=== PATIENT | male | born 1980 | race Caucasian/White ===

== ENCOUNTER 2017-09-06 13:00 | Emergency (ER) | payer BC ==
[~2017-09-06] VITALS: Ht 180.3 cm; Wt 105.0 kg
[~2017-09-06 13:00] MED LIST: BACTRIM1 TAB OR; LORTAB 5 OR
[2017-09-06 13:35] LABS: HEMATOCRIT 44.5 % (39.0-50.0); HEMOGLOBIN 14.9 g/dl (14.0-18.0); IMMATURE GRANULOCYTES 0.4 % (0.0-1.0); MEAN CELL VOLUME 87.9 fL CALC (80.0-100.0); MEAN CORPUSCULAR HGB 29.4 pG CALC (26.0-32.0); MEAN CORPUSCULAR HGB CONC 33.5 g/L CALC (32.0-36.0); NEUT# 5.33 thou/uL (1.82-7.42); RED BLOOD COUNT 5.06 mill/uL (4.70-6.10); RED CELL DISTRI WIDTH 12.7 % (11.5-15.5)
[2017-09-06 13:44] LABS: PROTHROMBIN TIME 11.7 SECONDS (9.0-12.5)
[2017-09-06 13:46] LABS: ALBUMIN 4.5 g/dL (3.2-5.0); ALKALINE PHOSPHATASE 89 u/l (38-126); ANION GAP 18 (6-22 (CALC)); BILIRUBIN, TOTAL 0.4 mg/dL (0.0-1.4); BUN 14 mg/dL (9-20); BUN/CREATININE RATIO 18 (12-20 (CALC)); CARBON DIOXIDE 25 mmol/l (22-30); CHLORIDE 101 mmol/l (95-108); CREATININE 0.8 mg/dL (0.7-1.3); GFR > 60 ML/MIN (>=60 (CALC)); GFR FOR AFR.AMER. > 60 ML/MIN (>=60 (CALC)); POTASSIUM 3.9 mmol/l (3.5-5.1); SGOT/AST 18 u/l (17-59); SGPT/ALT 34 u/l (21-72); SODIUM 141 mmol/l (137-146); TOTAL PROTEIN 7.6 g/dL (6.3-8.2)
[2017-09-06 14:33] VITALS: BP 120/61
== END 2017-09-06 14:39 | disposition home or self-care (01) | DRG 69 ==
LOC: ED 13:00
PROVIDERS: Family Medicine
DX: G45.9 Transient cerebral ischemic attack, unspecified (principal); R20.2 Paresthesia of skin

== ENCOUNTER 2020-07-27 21:49 | Emergency (ER) | payer OTHER ==
[~2020-07-27] VITALS: Ht 180.3 cm; Wt 127.0 kg
[2020-07-27] MEDS ORDERED: ASPIRIN 81 LOW81 MG PO (22:17)
[2020-07-27 22:35] VITALS: BP 144/62
== END 2020-07-27 22:37 | disposition home or self-care (01) | DRG 605 ==
LOC: ED 21:49
PROC: 0HQ0XZZ Repair Scalp Skin, External Approach (ICD-10-PCS; principal; 2020-07-27)
DX: S01.01XA Laceration without foreign body of scalp, initial encounter (principal); W22.8XXA Striking against or struck by other objects, initial encounter; Y93.89 Activity, other specified; Y92.009 Unspecified place in unspecified non-institutional (private) residence as the place of occurrence of the external cause; Z98.84 Bariatric surgery status